=== PATIENT | male | born 1950 | race African-American/Black ===

== ENCOUNTER 2017-04-24 00:23 | Inpatient (IN) | payer MEDICARE, OTHER ==
[~2017-04-24] VITALS: Ht 182.9 cm; Wt 82.2 kg
[~2017-04-24 00:23] MED LIST: COR6 PO; DIGO125T82 PO; FURO20TA4 PO
[2017-04-24] MEDS ORDERED: FAMOTIDINE 20MG/2ML VIAL IV STA (02:14)
[2017-04-24] MEDS ORDERED: ONDANSETRON HCL 4MG/2ML VIAL IV STA (02:14)
[2017-04-24] MEDS ORDERED: MORPHINE SULFATE 4 MG/ML CPJ (NOT FOR IM USE) IV STA (02:14)
[2017-04-24] MEDS ORDERED: ASPIRIN 81MG TABLET PO ONE (02:15)
[2017-04-24 02:55] LABS: HEMATOCRIT. 27.8 % (42.0-52.0); HEMOGLOBIN. 8.5 g/dL (14.0-18.0); MEAN CORPUSCULAR VOLUME 68.7 fL (80.0-94.0); MEAN PLATELET VOLUME 9.4 fl (7.4-10.4); PLATELET 135 x1000/uL (130-400); RED BLOOD CELL COUNT 4.05 mill/uL (4.7-6.1); RED CELL DISTRIBUTION WIDTH 20.2 % (11.6-14.6)
[2017-04-24 03:06] LABS: D-DIMER 1.11 mg/L FEU (<0.50); INR 1.5; PROTHROMBIN TIME 15.3 sec (9.4-11.6)
[2017-04-24] MEDS ORDERED: SODIUM CHLORIDE 0.9% 1,000 ML IV ONE ×3 (03:08→05:06)
[2017-04-24] MEDS ORDERED: GUAIFENESIN/CODEINE 200-20MG/10ML UDC PO ONE (03:15)
[2017-04-24 03:16] LABS: CARBON DIOXIDE 21 mEq/L (21-32); CHLORIDE 101 mEq/L (98-107); ETHANOL BLOOD 12 mg/dL; TROPONIN I 0.06 ng/mL (0.00-0.04)
[2017-04-24 03:33] LABS: DIGOXIN < 0.1 ng/mL (0.9-2.0)
[2017-04-24 05:44] LABS: *AMPHETAMINES SCREEN URINE NEGATIVE (NEGATIVE); *BARBITURATES SCREEN URINE NEGATIVE (NEGATIVE); *BENZODIAZEPINES SCREEN URINE NEGATIVE (NEGATIVE); *COCAINE SCREEN URINE NEGATIVE (NEGATIVE); CANNABINOID URINE SCREEN NEGATIVE (NEGATIVE); METHADONE URINE SCREEN NEGATIVE (NEGATIVE); OPIATES URINE SCREEN PRESUMTIVE POSITIVE (NEGATIVE); PHENCYCLIDINE URINE SCREEN NEGATIVE (NEGATIVE)
[2017-04-24 07:18] LABS: NUCLEATED RED BLOOD CELLS 3 /100 WBC
[2017-04-24 07:19] LABS: PLATELET ESTIMATE NORMAL
[2017-04-24 08:00] VITALS: BP 136/60
[2017-04-24] MEDS ORDERED: CLONIDINE 0.1MG TABLET PO PRN (11:00)
[2017-04-24] MEDS ORDERED: ACETAMINOPHEN 325MG TABLET PO PRN (11:00)
[2017-04-24] MEDS ORDERED: DOCUSATE SODIUM 100MG CAPSULE PO PRN (11:00)
[2017-04-24] MEDS ORDERED: NA PHOS,M-B/NA PHOS,DI-BA ENEMA 118ML PR PRN (11:00)
[2017-04-24] MEDS ORDERED: NITROGLYCERIN 0.4MG TABLET SL SL PRN (11:00)
[2017-04-24] MEDS ORDERED: MAGNESIUM/ALUMINUM HYDROXIDE/SIMETHICONE 30ML UDC PO PRN (11:00)
[2017-04-24] MEDS ORDERED: ONDANSETRON HCL 4MG/2ML VIAL IV PRN (11:00)
[2017-04-24] MEDS ORDERED: IPRATROPIUM/ALBUTEROL 0.5-3(2.5)MG/3ML NEB INH PRN (11:00)
[2017-04-24 11:57] VITALS: BP 136/97
[2017-04-24 12:00] VITALS: BP 136/97
[2017-04-24] MEDS ORDERED: SODIUM CHLORIDE 0.9% 10ML VIAL ONE (12:44)
[2017-04-24] MEDS ORDERED: IOHEXOL-350 100 ML BOTTLE ONE (12:44)
[2017-04-24] MEDS ORDERED: CEFTRIAXONE 1 G PREMIX 50 ML IV SCH (13:00)
[2017-04-24] MEDS ORDERED: MVI, ADULT NO.1 10 ML, FOLIC ACID 1 MG, THIAMINE HCL 100 MG in SODIUM CHLORIDE 0.9% 1,0... IV NR ×8 (13:00→18:00)
[2017-04-24] MEDS: SUCRALFATE 1 G/10 ML UDC PO SCH ×3 (13:13→21:05)
[2017-04-24] MEDS: GUAIFENESIN 200MG/10ML SUGAR FREE UDC PO PRN (13:13)
[2017-04-24] MEDS: PANTOPRAZOLE SODIUM 40 MG/VIAL IV SCH ×2 (13:13→21:05)
[2017-04-24 13:39] LABS: HDL CHOLESTEROL 16 mg/dL (40-59); LDL CHOLESTEROL 40 mg/dL (5-100); TOTAL IRON BINDING CAPACITY 474 ug/dL (250-450)
[2017-04-24 14:02] LABS: FOLIC ACID (FOLATE) SERUM 10.4 ng/mL (>5.38)
[2017-04-24] MEDS: LEVOFLOXACIN 500MG PREMIX 100 ML IV SCH (14:49)
[2017-04-24] MEDS: CHLORDIAZEPOXIDE 5 MG CAPSULE PO SCH ×2 (14:49→21:05)
[2017-04-24 16:00] VITALS: BP 131/96
[2017-04-24 17:02] LABS: CREATINE KINASE MB FRACTION 6.7 ng/mL (0.5-3.6); TROPONIN I 0.06 ng/mL (0.00-0.04)
[2017-04-24] MEDS: CEFTRIAXONE 1 G PREMIX 50 ML IV SCH (17:10)
[2017-04-24 20:00] VITALS: BP 119/89
[2017-04-24] MEDS: METOPROLOL TARTRATE 25MG TABLET PO SCH (21:05)
[2017-04-24] MEDS: LORAZEPAM 2MG/ML CPJ IV PRN (22:46)
[2017-04-25] VITALS: BP 138/98
[2017-04-25 04:00] VITALS: BP 141/95
[2017-04-25] MEDS: SUCRALFATE 1 G/10 ML UDC PO SCH ×4 (06:35→23:17)
[2017-04-25] MEDS: CHLORDIAZEPOXIDE 5 MG CAPSULE PO SCH ×3 (06:35→23:16)
[2017-04-25 08:00] VITALS: BP 121/84
[2017-04-25 08:18] LABS: CLARITY URINE CLEAR (CLEAR); COLOR URINE DARK YELLOW (YELLOW); GLUCOSE URINE NEGATIVE (NEGATIVE); KETONES URINE NEGATIVE (NEGATIVE); LEUKOCYTE ESTERASE URINE TRACE (NEGATIVE); NITRITE URINE NEGATIVE (NEGATIVE); OCCULT BLOOD URINE TRACE (NEGATIVE); PROTEIN URINE 1+ (NEGATIVE); SPECIFIC GRAVITY URINE 1.067 (1.005-1.030)
[2017-04-25 08:25] LABS: CHLORIDE 100 mEq/L (98-107)
[2017-04-25] MEDS: PANTOPRAZOLE SODIUM 40 MG/VIAL IV SCH (08:39)
[2017-04-25 08:40] LABS: BASOPHILS % 0.2 % (0.0-2.0); HEMATOCRIT. 31.4 % (42.0-52.0); LYMPHOCYTES % 7.2 % (20.0-50.0); MEAN CORPUSCULAR HEMOGLOBIN 20.8 pg (28.0-32.0); MEAN CORPUSCULAR VOLUME 72.1 fL (80.0-94.0); MEAN PLATELET VOLUME 10.4 fl (7.4-10.4); MONOCYTES % 13.3 % (2.0-8.0); NEUTROPHILS % 79.3 % (40.0-76.0); PLATELET 157 x1000/uL (130-400); RED BLOOD CELL COUNT 4.35 mill/uL (4.7-6.1); RED CELL DISTRIBUTION WIDTH 19.9 % (11.6-14.6)
[2017-04-25] MEDS: METOPROLOL TARTRATE 25MG TABLET PO SCH ×2 (08:40→23:16)
[2017-04-25 08:42] LABS: CARBON DIOXIDE 14 mEq/L (21-32); CREATINE KINASE 313 IU/L (39-308); CREATINE KINASE MB FRACTION 8.2 ng/mL (0.5-3.6); TROPONIN I 0.09 ng/mL (0.00-0.04)
[2017-04-25] MEDS ORDERED: SODIUM CHLORIDE 0.9% 1000ML BAG (SEPSIS BOLUS) IV ONE (11:00)
[2017-04-25] MEDS ORDERED: SODIUM CHLORIDE 0.9% 2,000 ML IV SCH (11:00)
[2017-04-25 11:48] VITALS: BP 140/88
[2017-04-25] MEDS: LEVOFLOXACIN 500MG PREMIX 100 ML IV SCH (13:32)
[2017-04-25 16:00] VITALS: BP 95/53
[2017-04-25] MEDS: CEFTRIAXONE 1 G PREMIX 50 ML IV SCH (17:48)
[2017-04-25 20:00] VITALS: BP 115/78
[2017-04-25] MEDS: FAMOTIDINE 20MG/2ML VIAL IV SCH (23:16)
[2017-04-26] VITALS: BP 111/79
[2017-04-26] MEDS: LORAZEPAM 2MG/ML CPJ IV PRN (01:03)
[2017-04-26 04:00] VITALS: BP 137/73
[2017-04-26] MEDS: CHLORDIAZEPOXIDE 5 MG CAPSULE PO SCH ×3 (07:06→21:30)
[2017-04-26] MEDS: SUCRALFATE 1 G/10 ML UDC PO SCH ×4 (07:07→21:30)
[2017-04-26 08:00] VITALS: BP 131/76
[2017-04-26] MEDS: METOPROLOL TARTRATE 25MG TABLET PO SCH ×2 (08:41→21:31)
[2017-04-26] MEDS: FAMOTIDINE 20MG/2ML VIAL IV SCH ×2 (08:41→21:31)
[2017-04-26 11:59] VITALS: BP 110/85
[2017-04-26] MEDS: LEVOFLOXACIN 500MG PREMIX 100 ML IV SCH (12:38)
[2017-04-26 12:49] LABS: BASOPHILS % 0.1 % (0.0-2.0); HEMATOCRIT. 35.3 % (42.0-52.0); HEMOGLOBIN. 10.2 g/dL (14.0-18.0); LYMPHOCYTES % 13.5 % (20.0-50.0); MEAN CORPUSCULAR HEMOGLOBIN 21.1 pg (28.0-32.0); MEAN PLATELET VOLUME 9.9 fl (7.4-10.4); MONOCYTES % 11.6 % (2.0-8.0); NEUTROPHILS % 74.8 % (40.0-76.0); PLATELET 165 x1000/uL (130-400); RED BLOOD CELL COUNT 4.84 mill/uL (4.7-6.1); RED CELL DISTRIBUTION WIDTH 20.3 % (11.6-14.6)
[2017-04-26 12:58] LABS: CHLORIDE 99 mEq/L (98-107)
[2017-04-26 13:07] LABS: CARBON DIOXIDE 15 mEq/L (21-32)
[2017-04-26 13:16] LABS: PLATELET ESTIMATE NORMAL
[2017-04-26 16:00] VITALS: BP 118/85
[2017-04-26] MEDS: CEFTRIAXONE 1 G PREMIX 50 ML IV SCH (17:52)
[2017-04-26 20:00] VITALS: BP 105/58
[2017-04-26] MEDS: GUAIFENESIN 200MG/10ML SUGAR FREE UDC PO PRN (21:30)
[2017-04-27] VITALS: BP 125/83
[2017-04-27] MEDS: TRAMADOL 50MG TABLET PO PRN ×3 (01:11→21:14)
[2017-04-27 04:00] VITALS: BP 116/74
[2017-04-27] MEDS: CHLORDIAZEPOXIDE 5 MG CAPSULE PO SCH ×3 (06:35→21:13)
[2017-04-27] MEDS: SUCRALFATE 1 G/10 ML UDC PO SCH ×4 (06:35→21:13)
[2017-04-27 08:00] VITALS: BP 125/84
[2017-04-27] MEDS: FAMOTIDINE 20MG/2ML VIAL IV SCH ×2 (10:58→21:13)
[2017-04-27] MEDS: METOPROLOL TARTRATE 25MG TABLET PO SCH ×2 (10:59→21:14)
[2017-04-27 13:42] LABS: CHLORIDE 100 mEq/L (98-107)
[2017-04-27 13:52] LABS: CARBON DIOXIDE 23 mEq/L (21-32)
[2017-04-27] MEDS: LEVOFLOXACIN 500MG PREMIX 100 ML IV SCH (14:17)
[2017-04-27 16:00] VITALS: BP 123/84
[2017-04-27] MEDS: CEFTRIAXONE 1 G PREMIX 50 ML IV SCH (17:15)
[2017-04-27 20:00] VITALS: BP 134/84
[2017-04-28] VITALS (7 sets, daily range): BP systolic 94–140; BP diastolic 51–76
[2017-04-28] MEDS: SUCRALFATE 1 G/10 ML UDC PO SCH ×4 (06:16→21:03)
[2017-04-28] MEDS: CHLORDIAZEPOXIDE 5 MG CAPSULE PO SCH ×2 (06:16→13:13)
[2017-04-28 07:48] LABS: AMMONIA 34 uMol/L (<32)
[2017-04-28] MEDS: FAMOTIDINE 20MG/2ML VIAL IV SCH ×2 (08:22→21:04)
[2017-04-28] MEDS: METOPROLOL TARTRATE 25MG TABLET PO SCH ×2 (08:22→21:00)
[2017-04-28 09:42] LABS: BASOPHILS % 0.1 % (0.0-2.0); HEMATOCRIT. 29.3 % (42.0-52.0); HEMOGLOBIN. 8.8 g/dL (14.0-18.0); LYMPHOCYTES % 9.9 % (20.0-50.0); MEAN CORPUSCULAR VOLUME 69.9 fL (80.0-94.0); MEAN PLATELET VOLUME 9.6 fl (7.4-10.4); MONOCYTES % 10.4 % (2.0-8.0); NEUTROPHILS % 79.6 % (40.0-76.0); PLATELET 154 x1000/uL (130-400); RED BLOOD CELL COUNT 4.19 mill/uL (4.7-6.1); RED CELL DISTRIBUTION WIDTH 19.8 % (11.6-14.6)
[2017-04-28] MEDS: LEVOFLOXACIN 500MG TABLET PO SCH (10:55)
[2017-04-28] MEDS: DIPHENHYDRAMINE 50MG/ML VIAL IV PRN (11:32)
[2017-04-28] MEDS: LORAZEPAM 2MG/ML CPJ IV PRN ×2 (13:46→20:45)
[2017-04-28] MEDS: DEXT 5%/LACTATED RINGERS 1,000 ML IV SCH (14:56)
[2017-04-28] MEDS: CEFTRIAXONE 1 G PREMIX 50 ML IV SCH (17:37)
[2017-04-29] VITALS (8 sets, daily range): BP systolic 91–147; BP diastolic 60–94
[2017-04-29] MEDS: DIPHENHYDRAMINE 50MG/ML VIAL IV PRN (00:30)
[2017-04-29] MEDS: FAMOTIDINE 20MG/2ML VIAL IV SCH ×2 (08:22→21:31)
[2017-04-29] MEDS: SUCRALFATE 1 G/10 ML UDC PO SCH ×4 (08:22→21:31)
[2017-04-29] MEDS: METOPROLOL TARTRATE 25MG TABLET PO SCH ×2 (08:23→21:32)
[2017-04-29] MEDS: LORAZEPAM 2MG/ML CPJ IV PRN (09:07)
[2017-04-29] MEDS: LEVOFLOXACIN 500MG TABLET PO SCH (12:10)
[2017-04-29] MEDS: THIAMINE HCL 100MG TABLET PO SCH (12:10)
[2017-04-29] MEDS: FOLIC ACID 1MG TABLET PO SCH (12:10)
[2017-04-29] MEDS: MULTIVITAMINS,THER W-MINERALS TABLET PO SCH (12:10)
[2017-04-29] MEDS: DEXT 5%/LACTATED RINGERS 1,000 ML IV SCH (12:20)
[2017-04-29] MEDS: IPRATROPIUM/ALBUTEROL 0.5-3(2.5)MG/3ML NEB INH SCH ×3 (12:28→20:28)
[2017-04-29 13:09] LABS: BASOPHILS % 0.1 % (0.0-2.0); HEMOGLOBIN. 8.6 g/dL (14.0-18.0); MEAN CORPUSCULAR VOLUME 68.4 fL (80.0-94.0); MEAN PLATELET VOLUME 9.1 fl (7.4-10.4); MONOCYTES % 13.6 % (2.0-8.0); NEUTROPHILS % 77.3 % (40.0-76.0); PLATELET 130 x1000/uL (130-400); RED CELL DISTRIBUTION WIDTH 20.2 % (11.6-14.6)
[2017-04-29 13:24] LABS: CARBON DIOXIDE 19 mEq/L (21-32); CHLORIDE 104 mEq/L (98-107)
[2017-04-29 13:37] LABS: AMMONIA 46 uMol/L (<32)
[2017-04-29] MEDS: CHLORDIAZEPOXIDE 25MG CAPSULE PO SCH ×2 (15:28→21:31)
[2017-04-29] MEDS: AMOXICILLIN 500 MG CAPSULE PO SCH ×2 (16:54→21:31)
[2017-04-30] VITALS (7 sets, daily range): BP systolic 113–153; BP diastolic 65–104
[2017-04-30] MEDS: IPRATROPIUM/ALBUTEROL 0.5-3(2.5)MG/3ML NEB INH SCH ×6 (00:18→20:47)
[2017-04-30] MEDS: DEXT 5%/LACTATED RINGERS 1,000 ML IV SCH ×4 (00:18→23:29)
[2017-04-30] MEDS: DIPHENHYDRAMINE 50MG/ML VIAL IV PRN (01:23)
[2017-04-30] MEDS: AMOXICILLIN 500 MG CAPSULE PO SCH ×3 (06:55→21:40)
[2017-04-30] MEDS: SUCRALFATE 1 G/10 ML UDC PO SCH ×4 (06:55→21:42)
[2017-04-30] MEDS: CHLORDIAZEPOXIDE 25MG CAPSULE PO SCH (06:58)
[2017-04-30 08:05] LABS: CARBON DIOXIDE 23 mEq/L (21-32); CHLORIDE 107 mEq/L (98-107); T4 FREE 1.23 ng/dL (0.76-1.46)
[2017-04-30] MEDS: THIAMINE HCL 100MG TABLET PO SCH (08:23)
[2017-04-30] MEDS: MULTIVITAMINS,THER W-MINERALS TABLET PO SCH (08:23)
[2017-04-30] MEDS: FOLIC ACID 1MG TABLET PO SCH (08:23)
[2017-04-30] MEDS: FAMOTIDINE 20MG/2ML VIAL IV SCH ×2 (08:24→21:42)
[2017-04-30] MEDS: METOPROLOL TARTRATE 25MG TABLET PO SCH ×2 (08:24→21:41)
[2017-04-30] MEDS: LACTULOSE 20G/30ML UDC PO SCH ×4 (13:11→23:20)
[2017-04-30] MEDS: CHLORDIAZEPOXIDE 5 MG CAPSULE PO SCH ×2 (13:12→21:42)
[2017-05-01] VITALS: BP 116/80
[2017-05-01] MEDS: DIPHENHYDRAMINE 50MG/ML VIAL IV PRN (00:36)
[2017-05-01] MEDS: IPRATROPIUM/ALBUTEROL 0.5-3(2.5)MG/3ML NEB INH SCH ×6 (00:38→21:46)
[2017-05-01 04:00] VITALS: BP 116/80
[2017-05-01] MEDS: CHLORDIAZEPOXIDE 5 MG CAPSULE PO SCH (05:54)
[2017-05-01] MEDS: LACTULOSE 20G/30ML UDC PO SCH ×5 (05:54→21:30)
[2017-05-01] MEDS: AMOXICILLIN 500 MG CAPSULE PO SCH ×3 (05:54→22:18)
[2017-05-01] MEDS: SUCRALFATE 1 G/10 ML UDC PO SCH ×4 (06:04→21:30)
[2017-05-01 08:00] VITALS: BP 139/96
[2017-05-01] MEDS: FOLIC ACID 1MG TABLET PO SCH (09:45)
[2017-05-01] MEDS: MULTIVITAMINS,THER W-MINERALS TABLET PO SCH (09:45)
[2017-05-01] MEDS: FAMOTIDINE 20MG/2ML VIAL IV SCH ×2 (09:45→21:30)
[2017-05-01] MEDS: THIAMINE HCL 100MG TABLET PO SCH (09:45)
[2017-05-01] MEDS: METOPROLOL TARTRATE 25MG TABLET PO SCH ×2 (09:46→21:30)
[2017-05-01 12:00] VITALS: BP 136/95
[2017-05-01 15:37] LABS: BASOPHILS % 0.1 % (0.0-2.0); EOSINOPHILS % 0.6 % (0.0-5.0); HEMATOCRIT. 28.7 % (42.0-52.0); HEMOGLOBIN. 8.6 g/dL (14.0-18.0); LYMPHOCYTES % 6.1 % (20.0-50.0); MEAN CORPUSCULAR HEMOGLOBIN 20.9 pg (28.0-32.0); MEAN CORPUSCULAR VOLUME 69.5 fL (80.0-94.0); MEAN PLATELET VOLUME 9.7 fl (7.4-10.4); MONOCYTES % 12.6 % (2.0-8.0); NEUTROPHILS % 80.6 % (40.0-76.0); PLATELET 105 x1000/uL (130-400); RED BLOOD CELL COUNT 4.13 mill/uL (4.7-6.1); RED CELL DISTRIBUTION WIDTH 20.1 % (11.6-14.6)
[2017-05-01 15:55] LABS: CARBON DIOXIDE 25 mEq/L (21-32); CHLORIDE 112 mEq/L (98-107)
[2017-05-01 16:00] VITALS: BP 147/96
[2017-05-01] MEDS: DEXT 5%/LACTATED RINGERS 1,000 ML IV SCH ×2 (16:21→22:16)
[2017-05-01 16:35] LABS: PLATELET ESTIMATE DECREASED
[2017-05-01 20:00] VITALS: BP 133/77
[2017-05-01] MEDS: RIFAXIMIN 550 MG TABLET PO SCH (21:30)
[2017-05-02] VITALS (7 sets, daily range): BP systolic 99–145; BP diastolic 65–97
[2017-05-02] MEDS: IPRATROPIUM/ALBUTEROL 0.5-3(2.5)MG/3ML NEB INH SCH ×6 (00:04→21:02)
[2017-05-02] MEDS: AMOXICILLIN 500 MG CAPSULE PO SCH ×4 (06:38→21:35)
[2017-05-02] MEDS: LACTULOSE 20G/30ML UDC PO SCH ×6 (06:39→21:34)
[2017-05-02] MEDS: SUCRALFATE 1 G/10 ML UDC PO SCH ×4 (06:41→21:34)
[2017-05-02] MEDS: FAMOTIDINE 20MG/2ML VIAL IV SCH ×2 (09:00→21:00)
[2017-05-02] MEDS: THIAMINE HCL 100MG TABLET PO SCH (09:21)
[2017-05-02] MEDS: MULTIVITAMINS,THER W-MINERALS TABLET PO SCH (09:21)
[2017-05-02] MEDS: FOLIC ACID 1MG TABLET PO SCH (09:21)
[2017-05-02] MEDS: RIFAXIMIN 550 MG TABLET PO SCH ×2 (09:21→21:34)
[2017-05-02] MEDS: METOPROLOL TARTRATE 25MG TABLET PO SCH ×2 (09:22→21:34)
[2017-05-02 13:42] LABS: CARBON DIOXIDE 29 mEq/L (21-32); CHLORIDE 114 mEq/L (98-107)
[2017-05-03] VITALS: BP 130/86
[2017-05-03] MEDS: LACTULOSE 20G/30ML UDC PO SCH ×5 (00:46→17:07)
[2017-05-03] MEDS: IPRATROPIUM/ALBUTEROL 0.5-3(2.5)MG/3ML NEB INH SCH ×5 (01:22→16:14)
[2017-05-03 04:00] VITALS: BP 131/91
[2017-05-03] MEDS: AMOXICILLIN 500 MG CAPSULE PO SCH ×2 (05:14→15:07)
[2017-05-03] MEDS: SUCRALFATE 1 G/10 ML UDC PO SCH ×3 (05:14→17:07)
[2017-05-03] MEDS: DEXT 5%/0.45% NACL 1000ML 1,000 ML IV SCH ×2 (07:30→15:30)
[2017-05-03 08:00] VITALS: BP 137/87
[2017-05-03] MEDS: FAMOTIDINE 20MG/2ML VIAL IV SCH (09:00)
[2017-05-03] MEDS: MULTIVITAMINS,THER W-MINERALS TABLET PO SCH (09:40)
[2017-05-03] MEDS: RIFAXIMIN 550 MG TABLET PO SCH (09:40)
[2017-05-03] MEDS: THIAMINE HCL 100MG TABLET PO SCH (09:40)
[2017-05-03] MEDS: FOLIC ACID 1MG TABLET PO SCH (09:40)
[2017-05-03] MEDS: METOPROLOL TARTRATE 25MG TABLET PO SCH (09:41)
[2017-05-03 12:00] VITALS: BP 138/96
[2017-05-03 16:00] VITALS: BP 129/82
[2017-05-03 17:10] VITALS: BP 129/82
== END 2017-05-03 19:40 | DRG 871 ==
LOC: ER 00:23 → 5WST 03:29 → ENRESERV 06:57
PROVIDERS: ADMIT Internal Medicine; ATTEND Internal Medicine
DX: A41.9 Sepsis, unspecified organism (principal); G93.40 Encephalopathy, unspecified; N17.9 Acute kidney failure, unspecified; E44.0 Moderate protein-calorie malnutrition; I42.0 Dilated cardiomyopathy; K76.6 Portal hypertension; E87.1 Hypo-osmolality and hyponatremia; F10.239 Alcohol dependence with withdrawal, unspecified; N39.0 Urinary tract infection, site not specified; E83.52 Hypercalcemia; K70.30 Alcoholic cirrhosis of liver without ascites; I08.1 Rheumatic disorders of both mitral and tricuspid valves; K21.9 Gastro-esophageal reflux disease without esophagitis; B96.20 Unspecified Escherichia coli [E. coli] as the cause of diseases classified elsewhere; E78.00 Pure hypercholesterolemia, unspecified; D64.9 Anemia, unspecified; E78.5 Hyperlipidemia, unspecified; F17.210 Nicotine dependence, cigarettes, uncomplicated; I10 Essential (primary) hypertension; J44.9 Chronic obstructive pulmonary disease, unspecified; N20.0 Calculus of kidney; N62 Hypertrophy of breast; K72.90 Hepatic failure, unspecified without coma; K29.70 Gastritis, unspecified, without bleeding; I83.90 Asymptomatic varicose veins of unspecified lower extremity; M47.9 Spondylosis, unspecified; Z79.899 Other long term (current) drug therapy; Z68.24 Body mass index [BMI] 24.0-24.9, adult
CPT/HCPCS: 36415; 71010; 71275; 74176; 80048; 80053; 80061; 80162; 80305; 81001; 82140; 82330; 82550; 82553; 82607; 82746; 82962; 83036; 83540; 83550; 83605; 83690; 83735; 83880; 84439; 84443; 84484; 85025; 85379; 85610; 85730; 87040; 87077; 87086; 87186; 93005; 93306; 93970; 94640; 94664; 96361; 96374; 96375; 99285; A4216; C1893; C9113; G0482; J0696; J1200; J1956; J2060; J2270; J2405; J3411; J3490; J7030; J7040; J7042; J7050; J7121; J7620; Q9967

== ENCOUNTER 2017-07-31 12:34 | Inpatient (IN) | payer MEDICARE, OTHER ==
[~2017-07-31] VITALS: Ht 182.9 cm; Wt 78.5 kg
[~2017-07-31 12:34] MED LIST changes: +ASPI-1158 PO; +CARV3.1242 PO; -COR6 PO; -DIGO125T82 PO; -FURO20TA4 PO; +FURO40TA5 PO; +LOSA25TA12 PO; +MAGN400T26 PO; +SPIR50TA26 PO
[2017-07-31] MEDS ORDERED: SODIUM CHLORIDE 0.9% 500 ML IV ONE (14:24)
[2017-07-31 15:33] LABS: BASOPHILS % 1.2 % (0.0-2.0); EOSINOPHILS % 2.6 % (0.0-5.0); HEMATOCRIT. 32.2 % (42.0-52.0); HEMOGLOBIN. 9.7 g/dL (14.0-18.0); LYMPHOCYTES % 19.2 % (20.0-50.0); MEAN CORPUSCULAR HEMOGLOBIN 20.2 pg (28.0-32.0); MEAN CORPUSCULAR VOLUME 67.4 fL (80.0-94.0); MEAN PLATELET VOLUME 8.8 fl (7.4-10.4); MONOCYTES % 14.9 % (2.0-8.0); NEUTROPHILS % 62.1 % (40.0-76.0); PLATELET 178 x1000/uL (130-400); RED BLOOD CELL COUNT 4.78 mill/uL (4.7-6.1)
[2017-07-31 15:38] LABS: INR 1.2; PARTIAL THROMBOPLASTIN TIME 28.8 sec (23.4-31.0); PROTHROMBIN TIME 12.7 sec (9.4-11.6)
[2017-07-31 15:39] LABS: CARBON DIOXIDE 29 mEq/L (21-32); CHLORIDE 100 mEq/L (98-107)
[2017-07-31 15:45] LABS: TROPONIN I < 0.02 ng/mL (0.00-0.04)
[2017-07-31 15:50] LABS: PLATELET ESTIMATE NORMAL
[2017-07-31 17:45] VITALS: BP 115/81
[2017-07-31] MEDS ORDERED: IPRATROPIUM/ALBUTEROL 0.5-3(2.5)MG/3ML NEB INH PRN (18:30)
[2017-07-31] MEDS ORDERED: GUAIFENESIN 200MG/10ML SUGAR FREE UDC PO PRN (18:30)
[2017-07-31] MEDS ORDERED: CLONIDINE 0.1MG TABLET PO PRN (18:30)
[2017-07-31] MEDS ORDERED: HYDROCODONE/ACETAMINOPHEN 10/325MG TABLET PO PRN (18:30)
[2017-07-31] MEDS ORDERED: ONDANSETRON HCL 4MG/2ML VIAL IV PRN (18:30)
[2017-07-31] MEDS ORDERED: HYDROCODONE/ACETAMINOPHEN 5/325MG TABLET PO PRN (18:30)
[2017-07-31] MEDS ORDERED: ACETAMINOPHEN 650MG/20.3ML UDC GT PRN (18:30)
[2017-07-31] MEDS ORDERED: NA PHOS,M-B/NA PHOS,DI-BA ENEMA 118ML PR PRN (18:30)
[2017-07-31] MEDS ORDERED: DOCUSATE SODIUM 100MG CAPSULE PO PRN (18:30)
[2017-07-31] MEDS ORDERED: ACETAMINOPHEN 650MG SUPP PR PRN (18:30)
[2017-07-31] MEDS ORDERED: MAGNESIUM/ALUMINUM HYDROXIDE/SIMETHICONE 30ML UDC PO PRN (18:30)
[2017-07-31] MEDS ORDERED: DIPHENHYDRAMINE 50MG/ML VIAL IV PRN (18:30)
[2017-07-31] MEDS ORDERED: ACETAMINOPHEN 325MG TABLET PO PRN (18:30)
[2017-07-31] MEDS: SPIRONOLACTONE 50MG TABLET PO SCH (18:36)
[2017-07-31] MEDS: MAGNESIUM OXIDE 400MG TABLET PO SCH (18:36)
[2017-07-31 20:00] VITALS: BP 104/69
[2017-07-31] MEDS: CARVEDILOL 3.125 MG TABLET PO SCH (21:00)
[2017-07-31] MEDS: LOSARTAN POTASSIUM 25 MG TABLET PO SCH (21:00)
[2017-07-31] MEDS: SODIUM CHLORIDE 0.9% INJ 3ML FLUSH IVF SCH (21:48)
[2017-07-31] MEDS: FUROSEMIDE 40MG TABLET PO SCH (21:48)
[2017-08-01] VITALS (11 sets, daily range): BP systolic 101–162; BP diastolic 67–98
[2017-08-01 05:19] LABS: CLARITY URINE CLEAR (CLEAR); COLOR URINE YELLOW (YELLOW); KETONES URINE NEGATIVE (NEGATIVE); LEUKOCYTE ESTERASE URINE NEGATIVE (NEGATIVE); NITRITE URINE NEGATIVE (NEGATIVE); OCCULT BLOOD URINE NEGATIVE (NEGATIVE); PROTEIN URINE NEGATIVE (NEGATIVE); SPECIFIC GRAVITY URINE 1.009 (1.005-1.030); UROBILINOGEN URINE 0.2 E.U./dL (0.2-1.0)
[2017-08-01 05:56] LABS: *AMPHETAMINES SCREEN URINE NEGATIVE (NEGATIVE); *BARBITURATES SCREEN URINE NEGATIVE (NEGATIVE); *BENZODIAZEPINES SCREEN URINE NEGATIVE (NEGATIVE); *COCAINE SCREEN URINE NEGATIVE (NEGATIVE); CANNABINOID URINE SCREEN NEGATIVE (NEGATIVE); METHADONE URINE SCREEN NEGATIVE (NEGATIVE); OPIATES URINE SCREEN NEGATIVE (NEGATIVE); PHENCYCLIDINE URINE SCREEN NEGATIVE (NEGATIVE)
[2017-08-01] MEDS: SODIUM CHLORIDE 0.9% INJ 3ML FLUSH IVF SCH ×2 (06:36→14:49)
[2017-08-01 07:09] LABS: CARBON DIOXIDE 29 mEq/L (21-32); HDL CHOLESTEROL 56 mg/dL (40-59); LDL CHOLESTEROL 58 mg/dL (5-100)
[2017-08-01 07:13] LABS: BASOPHILS % 1.5 % (0.0-2.0); EOSINOPHILS % 2.5 % (0.0-5.0); HEMATOCRIT. 33.9 % (42.0-52.0); HEMOGLOBIN. 10.3 g/dL (14.0-18.0); LYMPHOCYTES % 26.3 % (20.0-50.0); MEAN CORPUSCULAR HEMOGLOBIN 20.5 pg (28.0-32.0); MEAN CORPUSCULAR VOLUME 67.7 fL (80.0-94.0); MEAN PLATELET VOLUME 9.1 fl (7.4-10.4); MONOCYTES % 14.8 % (2.0-8.0); NEUTROPHILS % 54.9 % (40.0-76.0); PLATELET 166 x1000/uL (130-400); RED BLOOD CELL COUNT 5.01 mill/uL (4.7-6.1)
[2017-08-01 08:02] LABS: CHLORIDE 98 mEq/L (98-107)
[2017-08-01] MEDS ORDERED: VANCOMYCIN 1 G PREMIX 200 ML IV SCH (08:30)
[2017-08-01] MEDS ORDERED: GENTAMICIN SULF 40MG/ML 2ML VIAL ONE ×2 (08:38→10:49)
[2017-08-01] MEDS ORDERED: GENTAMICIN/NS IRRIGATION 500 ML IR ONE (08:40)
[2017-08-01] MEDS: MAGNESIUM OXIDE 400MG TABLET PO SCH ×2 (08:42→17:13)
[2017-08-01] MEDS: CARVEDILOL 3.125 MG TABLET PO SCH (08:42)
[2017-08-01] MEDS: SPIRONOLACTONE 50MG TABLET PO SCH ×2 (08:42→17:15)
[2017-08-01] MEDS: FUROSEMIDE 40MG TABLET PO SCH (08:42)
[2017-08-01] MEDS: LOSARTAN POTASSIUM 25 MG TABLET PO SCH (08:42)
[2017-08-01] MEDS ORDERED: MIDAZOLAM HCL 2 MG/2 ML VIAL ONE (09:04)
[2017-08-01] MEDS ORDERED: FENTANYL CITRATE/PF 50MCG/ML 2ML VIAL ONE (09:05)
[2017-08-01] MEDS ORDERED: HYDROCODONE/ACETAMINOPHEN 5/325MG TABLET PO PRN (11:30)
== END 2017-08-01 19:20 | disposition home or self-care (01) | DRG 908 ==
LOC: ER 13:12 → 6WST 16:06 → EDBEDREQ 16:12 → ENRESERV 16:23 → 3WST 08-01 11:38
PROVIDERS: ADMIT Family Medicine; ATTEND Family Medicine
PROC: 02WA0MZ Revision of Cardiac Lead in Heart, Open Approach (ICD-10-PCS; principal; 2017-08-01)
PROC: 0JWT0PZ Revision of Cardiac Rhythm Related Device in Trunk Subcutaneous Tissue and Fascia, Open Approach (ICD-10-PCS; 2017-08-01)
PROC: 0J960ZZ Drainage of Chest Subcutaneous Tissue and Fascia, Open Approach (ICD-10-PCS; 2017-08-01)
DX: L76.22 Postprocedural hemorrhage of skin and subcutaneous tissue following other procedure (principal); D62 Acute posthemorrhagic anemia; I42.9 Cardiomyopathy, unspecified; Y92.89 Other specified places as the place of occurrence of the external cause; Y83.1 Surgical operation with implant of artificial internal device as the cause of abnormal reaction of the patient, or of later complication, without mention of misadventure at the time of the procedure; I10 Essential (primary) hypertension; I25.10 Atherosclerotic heart disease of native coronary artery without angina pectoris; Z86.73 Personal history of transient ischemic attack (TIA), and cerebral infarction without residual deficits; Z95.810 Presence of automatic (implantable) cardiac defibrillator
CPT/HCPCS: 33222; 36415; 71010; 80048; 80053; 80061; 80305; 81003; 84484; 85025; 85610; 85730; 86850; 86900; 87070; 87075; 87077; 87186; 87205; 93005; 96360; 96361; 99285; J1580; J2250; J3010; J3370; J7030; J7040; J7050

== ENCOUNTER 2017-11-08 08:52 | Day surgery (SDC) | payer MEDICARE, OTHER ==
[~2017-11-08] VITALS: Ht 182.9 cm; Wt 75.7 kg
[2017-11-08] VITALS (13 sets, daily range): BP systolic 150–157; BP diastolic 96–107
[2017-11-08] MEDS ORDERED: FENTANYL CITRATE/PF 50MCG/ML 2ML VIAL ONE (09:05)
[2017-11-08] MEDS ORDERED: SODIUM BICARBONATE 4% (2.4MEQ) 5ML VIAL IV ONE (09:07)
[2017-11-08] MEDS ORDERED: LIDOCAINE HCL/PF 1% 10 MG/ML 30ML VIAL ONE (09:07)
[2017-11-08] MEDS ORDERED: HYDROCODONE/ACETAMINOPHEN 5/325MG TABLET PO PRN (10:00)
[2017-11-08] MEDS ORDERED: FENTANYL CITRATE/PF 50MCG/ML 2ML VIAL IV ONE (10:00)
[2017-11-08 13:13] LABS: HEMATOCRIT 37.8 % (42.0-52.0); HEMOGLOBIN 11.9 g/dL (14.0-18.0)
== END 2017-11-08 14:20 | disposition home or self-care (01) ==
LOC: RAD 08:52
PROVIDERS: ATTEND Internal Medicine Gastroenterology
DX: C22.0 Liver cell carcinoma (principal); R16.0 Hepatomegaly, not elsewhere classified; K70.30 Alcoholic cirrhosis of liver without ascites; Z79.899 Other long term (current) drug therapy; I25.10 Atherosclerotic heart disease of native coronary artery without angina pectoris; I42.8 Other cardiomyopathies; Z95.810 Presence of automatic (implantable) cardiac defibrillator; I11.0 Hypertensive heart disease with heart failure; I50.23 Acute on chronic systolic (congestive) heart failure; Z86.73 Personal history of transient ischemic attack (TIA), and cerebral infarction without residual deficits; F10.10 Alcohol abuse, uncomplicated; F14.10 Cocaine abuse, uncomplicated; E78.00 Pure hypercholesterolemia, unspecified; B19.20 Unspecified viral hepatitis C without hepatic coma; D69.59 Other secondary thrombocytopenia; Z79.82 Long term (current) use of aspirin
CPT/HCPCS: 36415; 47000; 76942; 85014; 85018; 88307; 88313; J3010; J3490; J7050